=== PATIENT | female | born 2000 | race Two or more races ===

== ENCOUNTER 2022-04-20 03:09 | Emergency (ER) | payer BC, OTHER ==
[~2022-04-20] VITALS: Ht 162.6 cm; Wt 68.0 kg
[2022-04-20 03:35] VITALS: BP 115/71
[2022-04-20] MEDS ORDERED: TRIA0.02 TOP (04:24)
== END 2022-04-20 04:45 | disposition home or self-care (01) ==
LOC: ER 03:09
DX: L30.9 Dermatitis, unspecified (principal)